=== PATIENT | female | born 1930 | race Caucasian/White ===

== ENCOUNTER 2019-07-07 19:05 | Inpatient (IN) | payer OTHER, MEDICAID ==
[~2019-07-07] VITALS: Ht 157.5 cm; Wt 44.9 kg
[2019-07-07 19:05] VITALS: BP_SYST 122
[~2019-07-07 19:05] MED LIST: BUPIVACAINE /DEX PF 0.75% SPINAL 2 ML AMP INJ ONE; CEFAZOLIN 2 GM IVPB PREMIX 50 ML IV ONE; LR 1,000 ML IV.SOLN IV ONE; MIDAZOLAM HCL 5 MG/5 ML VIAL IVP ONE; MORPHINE SULFATE 10MG/10ML PF AMP EP ONE; NS IRRIG SOLN 1000 ML IR ONE
[2019-07-07] MEDS ORDERED: MORPHINE 2 MG/ML INJ. SYRINGE IVP ONE (20:00)
[2019-07-07 20:32] LABS: BASOPHILS # (AUTO) 0.1 K/uL (0.0-0.2); BASOPHILS % (AUTO) 1.7 % (0.0-2.0); EOSINOPHILS # (AUTO) 0.1 K/uL (0.0-0.4); EOSINOPHILS % (AUTO) 2.3 % (0.0-4.0); HEMATOCRIT 31.6 % (36-48); HEMOGLOBIN 10.6 g/dL (12.0-16.0); LYMPHOCYTES # (AUTO) 0.5 K/uL (1.0-5.5); LYMPHOCYTES % (AUTO) 7.9 % (20.5-51.5); MEAN CORPUSCULAR HEMOGLOBIN 26 pg (27-31); MEAN CORPUSCULAR HGB CONC 34 % (32-36); MEAN CORPUSCULAR VOLUME 78 fL (79.0-98.0); MONOCYTES # (AUTO) 0.6 K/uL (0.0-1.0); MONOCYTES % (AUTO) 9.6 % (1.7-9.3); NEUTROPHILS # (AUTO) 5.1 K/uL (1.8-7.7); NEUTROPHILS % (AUTO) 78.5 % (40.0-70.0); PLATELET COUNT (AUTO) 288 K/uL (130-430); RED BLOOD CELL COUNT(AUTO) 4.04 MIL/uL (4.2-6.2); RED CELL DISTRIBUTION WIDTH 18.2 % (9.0-15.0); WHITE BLOOD COUNT (AUTO) 6.5 K/uL (4.8-10.8)
[2019-07-07 20:38] LABS: ANION GAP 5 (5-15); CHLORIDE 102 mmol/L (98-107); CREATININE 0.75 mg/dL (0.55-1.30); GLUCOSE 115 mg/dL (70-99); POTASSIUM 4.4 mmol/L (3.5-5.1); SODIUM SERUM 133 mmol/L (136-145); UREA NITROGEN, BLOOD 16 mg/dL (8-21)
[2019-07-07 20:42] LABS: INR 1.1 (0.8-1.2); PROTHROMBIN TIME 11.5 SECS (9.5-12.5)
[2019-07-07 20:43] LABS: ALANINE AMINOTRANSFERASE 212 U/L (12-78); ALBUMIN 1.9 g/dL (3.4-4.8); ASPARTATE AMINOTRANSFERASE 292 U/L (10-37); TOTAL BILIRUBIN 0.7 mg/dL (0.0-1.0)
[2019-07-07] MEDS ORDERED: POTA10TA15 PO (20:52)
[2019-07-07] MEDS ORDERED: ACET-2165 PO (20:52)
[2019-07-07] MEDS ORDERED: UTI-STAT PO (20:52)
[2019-07-07] MEDS ORDERED: FERROUS SULFATE PO (20:52)
[2019-07-07] MEDS ORDERED: FURO-150 PO (20:52)
[2019-07-07] MEDS ORDERED: DONE10TA44 PO (20:52)
[2019-07-07] MEDS ORDERED: REM15 PO (20:52)
[2019-07-07] MEDS ORDERED: MULT-1089 PO (20:52)
[2019-07-07] MEDS ORDERED: LORA-258 PO ×2 (20:52)
[2019-07-07] MEDS ORDERED: MOM PO (20:52)
[2019-07-07] MEDS ORDERED: CRAN450C PO (20:52)
[2019-07-07] MEDS ORDERED: LEVO88TA5 PO (20:52)
[2019-07-07] MEDS ORDERED: DOCU-144 PO (20:52)
[2019-07-07] MEDS ORDERED: MORPHINE 2 MG/ML INJ. SYRINGE IVP PRN (23:45)
[2019-07-07] MEDS ORDERED: ONDANSETRON HCL 4 MG/2 ML VIAL IVP PRN (23:45)
[2019-07-08 00:25] VITALS: BP_SYST 104
[2019-07-08] MEDS: D5/0.45 NS 1,000 ML IV SCH ×2 (00:40→18:15)
[2019-07-08] MEDS: cefTRIAXone 1 GM IVPB PREMIX 50 ML IV SCH (01:00)
[2019-07-08] MEDS ORDERED: cefTRIAXone 1 GM IVPB PREMIX 50 ML IV ONE (01:05)
[2019-07-08] MEDS ORDERED: cefTRIAXone 1 GM VIAL ONE (01:07)
[2019-07-08 05:44] LABS: BASOPHILS # (AUTO) 0.1 K/uL (0.0-0.2); BASOPHILS % (AUTO) 1.1 % (0.0-2.0); EOSINOPHILS # (AUTO) 0.2 K/uL (0.0-0.4); EOSINOPHILS % (AUTO) 2.4 % (0.0-4.0); HEMATOCRIT 31.4 % (36-48); HEMOGLOBIN 10.4 g/dL (12.0-16.0); LYMPHOCYTES # (AUTO) 0.7 K/uL (1.0-5.5); LYMPHOCYTES % (AUTO) 10.5 % (20.5-51.5); MEAN CORPUSCULAR HEMOGLOBIN 26 pg (27-31); MEAN CORPUSCULAR HGB CONC 33 % (32-36); MEAN CORPUSCULAR VOLUME 78 fL (79.0-98.0); MONOCYTES # (AUTO) 0.6 K/uL (0.0-1.0); MONOCYTES % (AUTO) 9.1 % (1.7-9.3); NEUTROPHILS # (AUTO) 5.1 K/uL (1.8-7.7); NEUTROPHILS % (AUTO) 76.9 % (40.0-70.0); PLATELET COUNT (AUTO) 282 K/uL (130-430); RED BLOOD CELL COUNT(AUTO) 4.03 MIL/uL (4.2-6.2); RED CELL DISTRIBUTION WIDTH 17.9 % (9.0-15.0); WHITE BLOOD COUNT (AUTO) 6.6 K/uL (4.8-10.8)
[2019-07-08 06:16] LABS: INR 1.2 (0.8-1.2); PROTHROMBIN TIME 11.8 SECS (9.5-12.5)
[2019-07-08 06:27] LABS: ALANINE AMINOTRANSFERASE 202 U/L (12-78); ALBUMIN 1.9 g/dL (3.4-4.8); ANION GAP 8 (5-15); ASPARTATE AMINOTRANSFERASE 270 U/L (10-37); CALCIUM 8.4 mg/dL (8.4-11.0); CHLORIDE 101 mmol/L (98-107); CREATININE 0.67 mg/dL (0.55-1.30); GLUCOSE 115 mg/dL (70-99); POTASSIUM 3.9 mmol/L (3.5-5.1); SODIUM SERUM 132 mmol/L (136-145); TOTAL BILIRUBIN 0.7 mg/dL (0.0-1.0); UREA NITROGEN, BLOOD 15 mg/dL (8-21)
[2019-07-08 08:14] VITALS: BP_SYST 140
[2019-07-08 12:23] VITALS: BP_SYST 109
[2019-07-08 16:25] VITALS: BP_SYST 142
[2019-07-08] MEDS ORDERED: ACETAMINOPHEN 325 MG TABLET PO SCH (17:30)
[2019-07-08] MEDS ORDERED: LORazepam 1 MG TABLET PO PRN (17:30)
[2019-07-08 19:45] VITALS: BP_SYST 137
[2019-07-08] MEDS: MIRTAZAPINE 15 MG TABLET PO SCH (20:28)
[2019-07-08] MEDS: MILK OF MAGNESIA 30 ML UDC PO SCH (20:29)
[2019-07-08] MEDS: MORPHINE 2 MG/ML INJ. SYRINGE IVP PRN (20:36)
[2019-07-09] MEDS: MORPHINE 2 MG/ML INJ. SYRINGE IVP PRN (01:01)
[2019-07-09 01:34] VITALS: BP_SYST 131
[2019-07-09 02:36] LABS: BILIRUBIN,URINE NEGATIVE (NEGATIVE); CLARITY/URINE CLEAR (CLEAR); COLOR,URINE YELLOW (YELLOW); GLUCOSE,URINE NEGATIVE (NEGATIVE); KETONES,URINE NEGATIVE (NEGATIVE); LEUKOCYTE ESTERASE ,URINE TRACE (NEGATIVE); NITRITE, URINE NEGATIVE (NEGATIVE); PROTEIN URINE NEGATIVE (NEGATIVE)
[2019-07-09 02:42] LABS: BLOOD, URINE TRACE (NEGATIVE)
[2019-07-09 03:21] LABS: BACTERIA,URINE FEW /HPF (None Seen)
[2019-07-09 08:00] VITALS: BP_SYST 147
[2019-07-09] MEDS: LEVOTHYROXINE SODIUM 0.088 MG TABLET PO SCH (08:00)
[2019-07-09] MEDS: DOCUSATE SODIUM 100 MG CAPSULE PO SCH (09:00)
[2019-07-09] MEDS: MULTIVITAMINS TAB 1 TABLET PO SCH (09:00)
[2019-07-09] MEDS: POTASSIUM CHLORIDE 10 MEQ TAB.PRT.SR PO SCH (09:00)
[2019-07-09] MEDS: FUROSEMIDE 20 MG TABLET PO SCH (09:00)
[2019-07-09] MEDS: LORazepam 1 MG TABLET PO SCH (09:00)
[2019-07-09] MEDS: DONEPEZIL HCL 5 MG TABLET (ARICEPT) PO SCH (09:00)
[2019-07-09] MEDS ORDERED: POLYMYXIN 500,000/BACIT.10,000 UNITS in NS IRR 1 L IR ONE (10:53)
[2019-07-09] MEDS ORDERED: CEFAZOLIN 1 GM IVPB PREMIX 100 ML IV ONE (11:26)
[2019-07-09] MEDS ORDERED: MORPHINE SULFATE 10MG/10ML PF AMP SP SCH (11:45)
[2019-07-09] MEDS ORDERED: NALOXONE HCL 0.4 MG/ML AMP (NARCAN) IVP PRN ×2 (11:45)
[2019-07-09] MEDS ORDERED: NALBUPHINE HCL 10 MG/ML AMP IVP PRN (11:45)
[2019-07-09] MEDS ORDERED: ONDANSETRON HCL 4 MG/2 ML VIAL IVP PRN (11:45)
[2019-07-09] MEDS ORDERED: DIPHENHYDRAMINE INJ 50 MG/ML VIAL IVP PRN (11:45)
[2019-07-09] MEDS ORDERED: KETOROLAC TROMETHAMINE 60 MG/2 ML VIAL IM PRN (11:45)
[2019-07-09] MEDS ORDERED: COMMUNICATION ORDER XX ONE (19:45)
[2019-07-09] MEDS: D5/0.45 NS 1,000 ML IV SCH ×2 (19:52→21:14)
[2019-07-09 20:33] VITALS: BP_SYST 141
[2019-07-09] MEDS: MIRTAZAPINE 15 MG TABLET PO SCH (20:38)
[2019-07-09] MEDS: MILK OF MAGNESIA 30 ML UDC PO SCH (20:38)
[2019-07-09] MEDS: cefTRIAXone 1 GM IVPB PREMIX 50 ML IV SCH (22:03)
[2019-07-09] MEDS: ENOXAPARIN SODIUM 30 MG/0.3 ML SYRINGE SUBCUT SCH (23:29)
[2019-07-10 00:25] VITALS: BP_SYST 137
[2019-07-10] MEDS: LEVOTHYROXINE SODIUM 0.088 MG TABLET PO SCH ×2 (06:18→06:20)
[2019-07-10 07:48] LABS: ALANINE AMINOTRANSFERASE 137 U/L (12-78); ALBUMIN 1.5 g/dL (3.4-4.8); ANION GAP 1 (5-15); ASPARTATE AMINOTRANSFERASE 213 U/L (10-37); CALCIUM 7.9 mg/dL (8.4-11.0); CHLORIDE 103 mmol/L (98-107); CREATININE 0.62 mg/dL (0.55-1.30); GLUCOSE 100 mg/dL (70-99); POTASSIUM 4.6 mmol/L (3.5-5.1); SODIUM SERUM 132 mmol/L (136-145); TOTAL BILIRUBIN 0.6 mg/dL (0.0-1.0); UREA NITROGEN, BLOOD 14 mg/dL (8-21)
[2019-07-10 07:55] LABS: BASOPHILS # (AUTO) 0.1 K/uL (0.0-0.2); BASOPHILS % (AUTO) 1.3 % (0.0-2.0); EOSINOPHILS # (AUTO) 0.2 K/uL (0.0-0.4); EOSINOPHILS % (AUTO) 2.6 % (0.0-4.0); HEMATOCRIT 26.7 % (36-48); LYMPHOCYTES # (AUTO) 0.6 K/uL (1.0-5.5); LYMPHOCYTES % (AUTO) 9.1 % (20.5-51.5); MEAN CORPUSCULAR HEMOGLOBIN 26 pg (27-31); MEAN CORPUSCULAR HGB CONC 34 % (32-36); MEAN CORPUSCULAR VOLUME 78 fL (79.0-98.0); MONOCYTES # (AUTO) 0.8 K/uL (0.0-1.0); MONOCYTES % (AUTO) 12.1 % (1.7-9.3); NEUTROPHILS # (AUTO) 5.1 K/uL (1.8-7.7); NEUTROPHILS % (AUTO) 74.9 % (40.0-70.0); PLATELET COUNT (AUTO) 277 K/uL (130-430); RED CELL DISTRIBUTION WIDTH 17.7 % (9.0-15.0); WHITE BLOOD COUNT (AUTO) 6.8 K/uL (4.8-10.8)
[2019-07-10 08:06] LABS: HEPATITIS A AB, IgM Negative (Negative); HEPATITIS B CORE AB, IgM Negative (Negative); HEPATITIS B SURFACE AG Negative (Negative)
[2019-07-10] MEDS: DONEPEZIL HCL 5 MG TABLET (ARICEPT) PO SCH (09:50)
[2019-07-10] MEDS: POTASSIUM CHLORIDE 10 MEQ TAB.PRT.SR PO SCH (09:51)
[2019-07-10] MEDS: LORazepam 1 MG TABLET PO SCH (09:51)
[2019-07-10] MEDS: FUROSEMIDE 20 MG TABLET PO SCH (09:51)
[2019-07-10] MEDS: MULTIVITAMINS TAB 1 TABLET PO SCH (09:51)
[2019-07-10] MEDS: DOCUSATE SODIUM 100 MG CAPSULE PO SCH (09:51)
[2019-07-10 12:00] VITALS: BP_SYST 125
[2019-07-10] MEDS: ENOXAPARIN SODIUM 30 MG/0.3 ML SYRINGE SUBCUT SCH ×2 (12:49→23:54)
[2019-07-10 16:21] VITALS: BP_SYST 115
[2019-07-10 20:11] VITALS: BP_SYST 153
[2019-07-10] MEDS: MIRTAZAPINE 15 MG TABLET PO SCH (21:21)
[2019-07-10] MEDS: D5/0.45 NS 1,000 ML IV SCH (21:21)
[2019-07-10] MEDS: MILK OF MAGNESIA 30 ML UDC PO SCH (21:21)
[2019-07-10] MEDS: cefTRIAXone 1 GM IVPB PREMIX 50 ML IV SCH (23:50)
[2019-07-11] VITALS: BP_SYST 127
[2019-07-11] MEDS: LEVOTHYROXINE SODIUM 0.088 MG TABLET PO SCH (06:53)
[2019-07-11 08:00] VITALS: BP_SYST 119
[2019-07-11] MEDS: DOCUSATE SODIUM 100 MG CAPSULE PO SCH (08:37)
[2019-07-11] MEDS: LORazepam 1 MG TABLET PO SCH (08:37)
[2019-07-11] MEDS: FUROSEMIDE 20 MG TABLET PO SCH (08:38)
[2019-07-11] MEDS: MULTIVITAMINS TAB 1 TABLET PO SCH (08:38)
[2019-07-11] MEDS: DONEPEZIL HCL 5 MG TABLET (ARICEPT) PO SCH (08:38)
[2019-07-11] MEDS: POTASSIUM CHLORIDE 10 MEQ TAB.PRT.SR PO SCH (08:38)
[2019-07-11] MEDS: MORPHINE 2 MG/ML INJ. SYRINGE IVP PRN (09:19)
[2019-07-11 12:41] VITALS: BP_SYST 131
[2019-07-11] MEDS: ENOXAPARIN SODIUM 30 MG/0.3 ML SYRINGE SUBCUT SCH ×2 (13:28→23:20)
[2019-07-11] MEDS: D5/0.45 NS 1,000 ML IV SCH (15:33)
[2019-07-11 16:00] VITALS: BP_SYST 121
[2019-07-11 20:10] VITALS: BP_SYST 115
[2019-07-11] MEDS: MILK OF MAGNESIA 30 ML UDC PO SCH (21:01)
[2019-07-11] MEDS: MIRTAZAPINE 15 MG TABLET PO SCH (21:01)
[2019-07-11] MEDS: cefTRIAXone 1 GM IVPB PREMIX 50 ML IV SCH (23:18)
[2019-07-12 01:17] VITALS: BP_SYST 122
[2019-07-12] MEDS: LEVOTHYROXINE SODIUM 0.088 MG TABLET PO SCH (06:06)
[2019-07-12 08:00] VITALS: BP_SYST 114
[2019-07-12] MEDS: DONEPEZIL HCL 5 MG TABLET (ARICEPT) PO SCH (08:14)
[2019-07-12] MEDS: MULTIVITAMINS TAB 1 TABLET PO SCH (08:14)
[2019-07-12] MEDS: LORazepam 1 MG TABLET PO SCH (08:15)
[2019-07-12] MEDS: POTASSIUM CHLORIDE 10 MEQ TAB.PRT.SR PO SCH (08:15)
[2019-07-12] MEDS: FUROSEMIDE 20 MG TABLET PO SCH (08:15)
[2019-07-12] MEDS: DOCUSATE SODIUM 100 MG CAPSULE PO SCH (08:16)
[2019-07-12] MEDS: ENOXAPARIN SODIUM 30 MG/0.3 ML SYRINGE SUBCUT SCH (11:52)
[2019-07-12 13:10] VITALS: BP_SYST 131
[2019-07-12] MEDS: D5/0.45 NS 1,000 ML IV SCH (13:41)
[2019-07-12 17:16] VITALS: BP_SYST 121
[2019-07-12 20:00] VITALS: BP_SYST 127
[2019-07-12] MEDS: MILK OF MAGNESIA 30 ML UDC PO SCH (20:09)
[2019-07-12] MEDS: MIRTAZAPINE 15 MG TABLET PO SCH (20:10)
[2019-07-12 23:30] VITALS: BP_SYST 125
== END 2019-07-12 23:42 | DRG 480 ==
LOC: SED 19:05 → SMU 22:51 → STU 07-08 19:09
PROVIDERS: ADMIT Internal Medicine; ATTEND Internal Medicine
PROC: 0QS704Z Reposition Left Upper Femur with Internal Fixation Device, Open Approach (ICD-10-PCS; principal; 2019-07-09 10:00)
DX: S72.142A Displaced intertrochanteric fracture of left femur, initial encounter for closed fracture (principal); E43 Unspecified severe protein-calorie malnutrition; N39.0 Urinary tract infection, site not specified; I50.32 Chronic diastolic (congestive) heart failure; E03.9 Hypothyroidism, unspecified; F32.9 Major depressive disorder, single episode, unspecified; D64.9 Anemia, unspecified; F03.90 Unspecified dementia, unspecified severity, without behavioral disturbance, psychotic disturbance, mood disturbance, and anxiety; F20.9 Schizophrenia, unspecified; I11.0 Hypertensive heart disease with heart failure; K74.60 Unspecified cirrhosis of liver; R74.0 Nonspecific elevation of levels of transaminase and lactic acid dehydrogenase [LDH]; W18.39XA Other fall on same level, initial encounter; Z87.440 Personal history of urinary (tract) infections; Y93.89 Activity, other specified; Y92.89 Other specified places as the place of occurrence of the external cause; Y99.8 Other external cause status
CPT/HCPCS: 36415; 71045; 73502; 76000; 76700-TC; 80053; 80074; 81000-TC; 85025; 85610-TC; 85730-TC; 86886; 86900; 86901; 87081; 92610-GN; 93005; 96374; 97530-GP; 99285; C1713; C1776; G0378; J0690; J0696; J1650; J2250; J2270; J2274; J3490; J7120